=== PATIENT | female | born 1995 | race African-American/Black ===

== ENCOUNTER 2019-06-02 17:10 | Emergency (ER) | payer MEDICAID, OTHER ==
[~2019-06-02] VITALS: Ht 157.5 cm; Wt 64.0 kg
[2019-06-02 17:20] VITALS: BP 132/78
== END 2019-06-02 22:21 | disposition left against medical advice (07) ==
LOC: ER 17:10
DX: R05 Cough (principal); R51 Headache; Z53.21 Procedure and treatment not carried out due to patient leaving prior to being seen by health care provider